=== PATIENT | female | born 1980 | race Caucasian/White ===

== ENCOUNTER 2021-02-08 22:55 | Emergency (ER) | payer SELFPAY ==
[~2021-02-08] VITALS: Ht 157.5 cm; Wt 100.0 kg
--- NOTE | 2021-02-09 00:43 | ED Head Injury ---
General Chief Complaint: Trauma-Non Activation Stated Complaint: HIT HEAD FELL Nursing Triage Note: STATES SHE SLIPPED ON WATER, FELL, AND STRUCK THE BACK OF HER HEAD. REPORTS PAIN TO L DORSAL ASPECT OF SCALP. NON TENDER UPON PALPATION TO C SPINE. 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 She denies loss of consciousness. She has had some mild nausea but denies any other symptoms of concussion. She denies any further injury. Location Injury Occurred: [employer] [facility] Allergies and Home Medications Allergies Coded Allergies: Penicillins (Unverified Allergy, Unknown, 08/11/14) Patient Home Medication List Home Medication List Reviewed: Yes Review of Systems Review of Systems Constitutional: no symptoms reported Eyes: No Symptoms Reported Ears, Nose, Mouth, Throat: no symptoms reported Respiratory: no symptoms reported Cardiovascular: no symptoms reported Gastrointestinal: see HPI Genitourinary: no symptoms reported : No Musculoskeletal: no symptoms reported Skin: no symptoms reported Psychiatric/Neurological: No Symptoms Reported Endocrine: No Symptoms Reported Hematologic/Lymphatic: No Symptoms Reported Past Ahwosve-Ueatwh-Ntjllt Hx Past Med/Social Hx: Reviewed Nursing Past Med/Soc Hx Patient Social History Alcohol Use: Denies Use Smoking Status: Never a Smoker 2nd Hand Smoke Exposure: No Recent Infectious Disease Expo: No Recent Hopitalizations: No Seasonal Allergies Seasonal Allergies: No Past Medical History Surgeries: Yes Adenoidectomy, Section, Orthopedic, Tonsillectomy, Tubal Ligation Respiratory: No Cardiac: No Neurological: No Genitourinary: No Gastrointestinal: No Musculoskeletal: No Endocrine: No HEENT: No Cancer: No Psychosocial: Yes Anxiety, Personality Disorder, Depression Integumentary: No Physical Exam Vital Signs Vital Signs - First Documented 02/08/21 23:20 Temp 36.5 Pulse 89 Resp 18 B/P (MAP) 144/98 (113) Pulse Ox 99 O2 Delivery Room Air Capillary Refill : Less Than 3 Seconds Height, Weight, BMI Height: '" Weight: lbs. oz. kg; 40.00 BMI Method: General Appearance: WD/WN, no apparent distress HEENT: PERRL/EOMI, normal ENT inspection, other (Tenderness over the left lower occiput with no palpable injury) Neck: non-tender, full range of motion, normal inspection Cardiovascular: regular rate, rhythm, no edema, no murmur Respiratory: lungs clear, normal breath sounds, no respiratory distress Back: normal inspection, no vertebral tenderness Extremities: normal inspection Psychiatric: alert, oriented x 3 [place] Nerves: normal hearing, normal speech, PERRL Coordination/Gait: normal finger to nose Motor/Sensory: no motor deficit, no sensory deficit Skin: normal color, warm/dry [place] Coma Score Best Eye Response: (4) Open Spontaneously Best Verbal Response: (5) Oriented Best Motor Response: (6) Obeys Commands Lucinda Total: 15 Progress/Results/Core Measures Results/Orders Vital Signs/I&O Blood Pressure Mean: 113 Progress Progress Note : Progress Note Patient did not meet criteria for head imaging. She possibly has a mild concu ssion. We discussed concussion precautions. She was provided a work note. Questions were answered. Departure Impression Primary Impression: Concussion Qualified Codes: S06.0X0A - Concussion without loss of consciousness, initial encounter Additional Impression: Fall on same level from slipping Qualified Codes: W01.0XXA - Fall on same level from slipping, tripping and stumbling without subsequent striking against object, initial encounter Disposition: 01 HOME, SELF-CARE Condition: Improved Departure-Patient Inst. Referrals: NO,LOCAL PHYSICIAN (PCP/Family) Primary Care Physician Patient Instructions: Concussion, Adult (DC) Add. Discharge Instructions: Drink plenty of clear liquids to stay well-hydrated. You may take Tylenol (acetaminophen) and/or ibuprofen for pain. Monitor for concussion symptoms such as nausea, confusion, irritability, headache, etc. Stop any activity that worsens the symptoms and rest. Do not go to work if you wake up with the symptoms in the morning. Return to the ER if you have worsening symptoms despite resting. Avoid any activity that could predispose you to further head injury such as using ladders, bike riding, contact sports, etc. for at least 7 days. Call with questions or concerns. All discharge instructions reviewed with patient and/or family. Voiced understanding. Work/School Note: Work Release Form Date Seen in the Emergency Department: February 09, 2021 Return to Work: February 10, 2021 Other Restrictions Listed Below: Return if no concussion symptoms. Stop work if concussion symptoms return. WILL PARSON MD February 09, 2021 00:43
[2021-02-09 00:49] VITALS: BP 144/98
== END 2021-02-09 00:49 | disposition home or self-care (01) ==
LOC: EDUNIT# 22:55 → ER 22:57
DX: S06.0X0A Concussion without loss of consciousness, initial encounter (principal); R40.2410 Glasgow coma scale score 13-15, unspecified time; Z88.0 Allergy status to penicillin; W01.198A Fall on same level from slipping, tripping and stumbling with subsequent striking against other object, initial encounter
CPT/HCPCS: 99282